=== PATIENT | female | born 1965 | race Asian ===

== ENCOUNTER 2017-11-30 08:12 | Outpatient (CLI) | payer OTHER | END 2017-11-30 21:37 | disposition home or self-care (01) | LOC: MAMMO 08:12 | DX: Z12.31 Encounter for screening mammogram for malignant neoplasm of breast (principal) ==

== ENCOUNTER 2018-01-04 10:59 | Outpatient (CLI) | payer OTHER | END 2018-01-04 21:45 | disposition home or self-care (01) | LOC: US 10:59 | DX: R92.8 Other abnormal and inconclusive findings on diagnostic imaging of breast (principal) ==

== ENCOUNTER 2020-09-05 09:01 | Outpatient (CLI) | payer OTHER ==
[2020-09-05 09:21] LABS: PLATELET COUNT 391 K/uL (152-353)
== END 2020-09-05 19:26 | disposition home or self-care (01) ==
LOC: LABW 09:01
PROVIDERS: ATTEND Nurse Practitioner Adult Health
DX: D72.829 Elevated white blood cell count, unspecified (principal)
CPT/HCPCS: 85027

== ENCOUNTER 2022-05-18 09:09 | Outpatient (CLI) | payer OTHER | END 2022-05-18 20:30 | disposition home or self-care (01) | LOC: US 09:09 | PROVIDERS: ATTEND Nurse Practitioner Family | DX: R22.9 Localized swelling, mass and lump, unspecified (principal); N63.10 Unspecified lump in the right breast, unspecified quadrant ==

== ENCOUNTER 2022-12-20 08:30 | Outpatient (CLI) | payer OTHER | END 2022-12-20 18:52 | disposition home or self-care (01) | LOC: US 08:30 | PROVIDERS: ATTEND Student in an Organized Health Care Education/Training Program | DX: N28.89 Other specified disorders of kidney and ureter (principal); D63.1 Anemia in chronic kidney disease; E83.89 Other disorders of mineral metabolism; E11.9 Type 2 diabetes mellitus without complications; E79.0 Hyperuricemia without signs of inflammatory arthritis and tophaceous disease; R80.8 Other proteinuria; N18.9 Chronic kidney disease, unspecified; I12.9 Hypertensive chronic kidney disease with stage 1 through stage 4 chronic kidney disease, or unspecified chronic kidney disease ==